=== PATIENT | male | born 1960 | race Caucasian/White ===

== ENCOUNTER 2018-12-21 16:39 | Emergency (ER) | payer OTHER ==
[~2018-12-21] VITALS: Ht 157.5 cm; Wt 81.6 kg
[2018-12-21 16:39] VITALS: BP 85/55
--- NOTE | 2018-12-21 17:02 | NUR ---
58/m biba from home c/o dizzy, n/v x 1 hr [employer] senior. hx DM, HTN. PER EMS PT HAD BP 70/40, BS 152 AT HOME. GOT ZOFRAN 4MG IV , IVF 500ML. SKIN IS PINK/WARM/DRY; AAOX4.PT DENIES ANY FEVER, CP, SOB, OR COUGH AT THIS TIME; PATIENT STATES PAIN OF 0/10 AT THIS TIME. PATIENT POSITIONED FOR COMFORT; HOB ELEVATED; BEDRAILS UP X2; BED DOWN. ER MADE AWARE OF PT STATUS. Addendum: 12/21/18 at 1714 by [email or web address] MED: BENAZEPRIL 5MG X ONCE DAILY, HUHUMALOG SLIDING SCALE, & INSULIN PEN THAT PT CAN'T REMEMBER THE NAME.
[2018-12-21] MEDS ORDERED: BENA20TA PO (17:21)
[2018-12-21] MEDS ORDERED: LACTATED RINGERS 1,000 ML IV ONE (17:45)
[2018-12-21] MEDS ORDERED: NACL 0.9% 1,000 ML IV SCH (17:47)
[2018-12-21] MEDS ORDERED: ONDANSETRON 4 MG/2 ML VIAL IVP ONE (17:50)
[2018-12-21] MEDS ORDERED: GLUCAGON 1 MG VIAL IVP ONE (17:50)
[2018-12-21 18:17] LABS: BASOPHILS % (AUTO) 0.4 % (0.0-2.0); EOSINOPHILS # (AUTO) 0.3 K/uL (0-0.4); EOSINOPHILS % (AUTO) 2.4 % (0.0-4.0); HEMATOCRIT 42.2 % (36-52); HEMOGLOBIN 13.8 g/dL (12.0-18.0); LYMPHOCYTES # (AUTO) 1.2 K/uL (2.0-11.5); LYMPHOCYTES % (AUTO) 10.1 % (20.5-51.1); MEAN CORPUSCULAR HEMOGLOBIN 31 pg (27-31); MEAN CORPUSCULAR HGB CONC 33 g/dL (33-37); MEAN CORPUSCULAR VOLUME 94.1 fL (80-94); MONOCYTES # (AUTO) 0.8 K/uL (0.8-1.0); MONOCYTES % (AUTO) 6.7 % (1.7-9.3); NEUTROPHILS # (AUTO) 9.2 K/uL (1.8-7.7); NEUTROPHILS % (AUTO) 80.4 % (42.2-75.2); PLATELET COUNT (AUTO) 262 K/uL (140-450); RED BLOOD CELL COUNT(AUTO) 4.48 MIL/uL (4.20-6.10); RED CELL DISTRIBUTION WIDTH 12.7 % (11.6-13.7); WHITE BLOOD COUNT (AUTO) 11.5 K/uL (4.8-10.8)
[2018-12-21 18:26] LABS: AMYLASE 51 U/L (25-115); LIPASE 76 U/L (73-393)
[2018-12-21 18:31] LABS: ALBUMIN 3.3 g/dL (3.4-5.0); ANION GAP 6.9 (8-16); CARBON DIOXIDE 30.6 mmol/L (21-32); CREATININE 1.3 mg/dL (0.7-1.3); POTASSIUM 4.5 mmol/L (3.5-5.1); TOTAL BILIRUBIN 0.5 mg/dL (0.0-1.0)
--- NOTE | 2018-12-21 18:40 | NUR ---
Patient appears to be resting comfortably in bed. Vital Signs within normal limits. Respirations even and unlabored.WILL CONTINUE TO MONITOR.
[2018-12-21 18:49] LABS: PROTHROMBIN TIME 11.6 secs (10.8-13.4)
--- NOTE | 2018-12-21 19:00 | NUR ---
PT CAN'T URENATE AT THIS TIME
[2018-12-21 19:02] VITALS: BP 106/61
--- NOTE | 2018-12-21 19:02 | NUR ---
Patient discharged with v/s stable. Written and verbal after care instructions given and explained. Patient verbalized understanding. Ambulatory with steady gait. All questions addressed prior to discharge. Advised to follow up with PMD.
== END 2018-12-21 19:02 | disposition home or self-care (01) ==
LOC: MED 16:39
DX: E11.649 Type 2 diabetes mellitus with hypoglycemia without coma (principal); I10 Essential (primary) hypertension; Z79.899 Other long term (current) drug therapy
CPT/HCPCS: 36415; 71045; 80053; 82150; 83690; 83880; 84484; 85025; 85610; 85730; 93005; 96361; 96374; 96375; 99284; J1610; J2405; J7030; J7120; Q0092